=== PATIENT | female | born 1975 | race Caucasian/White ===

== ENCOUNTER 2020-06-02 21:44 | Emergency (ER) | payer MEDICAID, SELFPAY ==
[2020-06-02 21:46] VITALS: BP 144/96; PULSE 76; RESP 16; TEMP 37; O2SAT 99; BMI 23.3
--- NOTE | 2020-06-02 21:52 | XR_ITS ---
PROCEDURE: XR FINGER LT MIN 2V CLINICAL INDICATION: smashed thumb Pain and swelling COMPARISON: No exams were available for comparison FINDINGS: No fracture or dislocation. No lytic or blastic change. There is normal mineralization. The joint spaces are well-preserved. No significant degenerative/arthritic changes. No erosive changes evident. Other findings:None. IMPRESSION: No acute findings. Dictated by: Ry Alonzo MD 06/03/2020 08:30 Ry Alonzo MD in [place] 06/03/2020 08:30
--- NOTE | 2020-06-02 22:51 | [facility].EDUPEXT ---
ED Disposition Clinical Impression: Injury of thumb, left Qualifiers: Encounter type: initial encounter Qualified Code(s): S69.92XA - Unspecified injury of left wrist, hand and finger(s), initial encounter Disposition: Home, Self-Care Condition on Discharge: Good Instructions: DI for Hand Injury Additional Instructions: use splint and see pcp and ortho for follow up Referrals: Maria G Newman APRN [Primary Care Provider] - Mir Gamboa MD [Staff Physician] - - Critical Care Critical Care Time: No Attestation: On 06/02/20, the high probability of a clinically significant, sudden or life threatening deterioration of the following system(s) required my full and direct attention, intervention and personal management. The time I documented below is in addition to time spent performing reported procedures but includes the following listed in this critical care notation. Medical Decision Making - Medical Records Medical records reviewed: Yes: I reviewed the patient's medical records. - Alejandro Inquiry Pt receiving controlled substance: No Vital Signs: 06/02/20 21:46 Temperature 98.6 F Temperature Source Oral Pulse Rate [Left Radial] 76 Respiratory Rate 16 Blood Pressure [Right Arm] 144/96 H Blood Pressure Mean [Right Arm] 112 Blood Pressure Source [Right Arm] Automatic Cuff Blood Pressure Position [Right Arm] Sitting 02 Sat by Pulse Oximetry 99 Oxygen Delivery Method Room Air Orders (Tests/Meds): ORDERS Category Date Time Status Finger XR left minimum 2 views [XR finger LT min 2V] Exams 06/02/20 21:52 Taken Stat - Radiology Data #1 Image(s): Hand Image Reviewed: Yes I reviewed the patient's radiology image Preliminary Findings: No Fracture Seen Upper Extremity HPI - General Chief Complaint: Extremity Injury, Upper Stated Complaint: smashed L thumb Time Seen by Provider: 06/02/20 22:05 Mode of Arrival: Ambulatory Source of Information: Patient, Medical Record Limitations: No Limitations Description of Symptoms (Recalled from ER Triage Doc. by RN): pt stated she dropped a heavy object on her finger today around 230pm and complains of soreness and swelling. - History of Present Illness HPI narrative: acute injury to lt thumb this afternoon- pain with swelling and movement complaint: injury to: left, finger Onset (ago): hour(s) Other Extremity Injury: Left: fingers Other injuries: none Handedness: right Place: home Severity: moderate Context: direct blow Associated symptoms: denies other symptoms - Related Data Previous Rx's Medication Instructions Recorded loratadine 10 mg capsule 10 mg PO DAILY #30 cap 10/10/18 Allergies Allergy/AdvReac Type Severity Reaction Status Date / Time codeine [CODEINE] Allergy Unknown PASSES Verified 10/10/18 10:39 OUT [facility] History - Hepatitis A Screen Drug use history?: Yes High risk sexual behaviors?: No History of sexually transmitted infection?: No Currently employed?: No Childcare worker?: No Do you have indoor plumbing?: Yes Do you have electricity?: Yes Attestation statement:: This patient has been screened for Hepatitis A risk factors. I have reviewed the patient's past medical history: Yes Other Medical History: Reports: Fibromyalgia, Other Comment: Blood Clots with ,Hx of Miscarriages, Factor 5 deficiency, Lupus, Other Surgeries: Yes: Dilation and Curettage Amputation: No Fractures: No Comment: D&C-1993,2013 - Social History Smoking Status: Current every day smoker Tobacco Type: cigarettes # Packs/Day (cigarettes): 1 #Yrs smoked (if former smoker): 28 Alcohol Intake: current Alcohol Intake Frequency:: holidays/special occasions only Occupational Status: employed Family Hx:: No significant family history [employer] history: Spontaneous ROS Obtained: Yes All systems reviewed & no additional complaints - Musculoskeletal Musculoskeletal: Reports as per HPI, Reports joint
[2020-06-02 23:31] VITALS: BP 138/86; PULSE 74; RESP 16; TEMP 37; O2SAT 98
== END 2020-06-02 23:32 | disposition home or self-care (01) ==
PROVIDERS: Emergency Provider Emergency Medicine; PCP Nurse Practitioner
DX: S67.02XA Crushing injury of left thumb, initial encounter (principal); S67.22XA Crushing injury of left hand, initial encounter; W22.8XXA Striking against or struck by other objects, initial encounter; Y92.89 Other specified places as the place of occurrence of the external cause; Z88.5 Allergy status to narcotic agent; M79.7 Fibromyalgia; D68.62 Lupus anticoagulant syndrome; F17.210 Nicotine dependence, cigarettes, uncomplicated
CPT/HCPCS: 29125; 73140; 99282